=== PATIENT | female | born 1950 | race Caucasian/White ===

== ENCOUNTER 2017-10-24 12:05 | Emergency (ER) | payer OTHER ==
[2017-10-24 12:12] VITALS: RESP 18
--- NOTE | 2017-10-24 12:40 | CPEKG ---
Heart Rate: 93 RR Interval: 645 P-R Interval: 148 QRSD Interval: 80 QT Interval: 344 QTC Interval: 428 P Bradford: 60 QRS Bradford: 56 T Wave Bradford: 65 EKG Severity - NORMAL ECG - EKG Impression: SINUS RHYTHM Electronically Signed By: Glenn Jimenez 24-Oct-2017 15:07:30
--- NOTE | 2017-10-24 13:15 | EDPHY ---
H & P Time Seen by Provider: 10/24/17 13:02 HPI/ROS: Chief complaint. Chest pain HPI. 66-year-old female presents with an episode of chest discomfort that occurred this morning at about 10:00 a.m.. She had gone to work and had sudden retrosternal chest discomfort that she describes as tightness. No radiation. Her heart was pounding. Symptoms were fairly severe at the onset and then over the next hour decreased to no chest discomfort. She had no shortness of breath. She did notice besides her heart pounding that she was burping a lot and then she had abdominal discomfort and needed to have a diarrhea episode. She had a go down 2 flights of stairs at her were office to the bathroom. She had diarrhea and then felt better. She noticed slight shortness of breath coming up the stairs from the bathroom but no increase or return of her chest discomfort. Otherwise she has not had any shortness of breath. She notes she has had a poor diet the last few days. Her symptoms today were better with relaxing and deep breathing. She has had no fever cough. No unusual leg pain or swelling. No similar symptoms previously. Quite a bit of increased stress in the last several months as her 3 months ago. She feels completely back to normal currently ROS Constitutional. no fever/chills, no weakness Eyes. no problems with vision ENT. no sore throat, no nasal drainage Cardiovascular. Chest pain Respiratory. no shortness of breath, no cough Abdominal. Abdominal discomfort with diarrhea . no problems urinating MS. no calf pain/swelling, no neck/back pain, no joint pain Skin. no rash Lymph. no swollen glands Neuro. no headache, no dizziness, no difficulty walking or with speech Past Medical/Surgical History: Patient denies any significant past medical history Family history negative for early coronary artery disease. Her father did have an aneurysm. Social History: , nonsmoker, no alcohol Smoking Status: Never smoked Physical Exam: General Appearance: Alert pleasant well-developed female mild distress vital signs are stable with initial heart rate 114 Eyes: Pupils equal and round no pallor or injection. ENT, Mouth: Mucous membranes are moist. Respiratory: There are no retractions, lungs are clear to auscultation. Cardiovascular: Regular rate and rhythm. Gastrointestinal: Abdomen is soft and nontender, no masses, bowel sounds normal. Neurological: Awake and alert, sensory and motor exams grossly normal. Skin: Warm and dry, no rashes. Musculoskeletal: Neck is supple nontender. Extremities symmetrical, full range of motion. Psychiatric: Patient is oriented X 3, there is no agitation. Constitutional: Initial Vital Signs Temperature (C) 37.0 C 10/24/17 12:09 Heart Rate 114 H 10/24/17 12:09 Respiratory Rate 18 10/24/17 12:09 Blood Pressure 128/90 H 10/24/17 12:09 O2 Sat (%) 97 10/24/17 12:09 O2 Delivery Mode Room Air Allergies/Adverse Reactions: No Known Allergies Allergy (Unverified 10/24/17 12:08) Home Medications: Medication Instructions Recorded NK [No Known Home Meds] 10/24/17 Medical Decision Making - Diagnostics EKG Interpretation: EKG interpreted by me shows normal sinus rhythm with normal interval and axis. QRS is normal there is no significant ST elevation or depression. There is no arrhythmia. The rate is 93 Imaging Results: Imaging Impressions Chest X-Ray 10/24/17 13:35 Impression: Moderate elevation right hemidiaphragm, otherwise negative chest. Chest x-ray reviewed by me shows no pneumonia. Elevation right hemidiaphragm Procedures: IV normal saline, monitor ED Course/Re-evaluation: Re-evaluation 2:30 p.m.-patient is stable. She has no symptoms. Patient and I discussed imaging lab EKG results. We discussed treatment plan including criteria for return importance of follow-up and further evaluation. She expresses understanding and agreement. She thinks she likely had an anxiety episode. Differential Diagnosis: This is likely anxiety episode. I considered acute coronary syndrome, pulmonary embolus, pancreatitis, gallbladder illness - Data Points Laboratory Results: Laboratory Results 10/24/17 12:44 10/24/17 12:44 10/24/17 10/24/17 10/24/17 12:44 12:44 12:44 WBC 9.63 10^3/uL H 10^3/uL (3.80-9.50) RBC 5.36 10^6/uL H 10^6/uL (4.18-5.33) Hgb 15.9 g/dL g/dL (12.6-16.3) Hct 46.9 % % (38.0-47.0) MCV 87.5 fL fL (81.5-99.8) MCH 29.7 pg pg (27.9-34.1) MCHC 33.9 g/dL g/dL (32.4-36.7) RDW 13.0 % % (11.5-15.2) Plt Count 242 10^3/uL 10^3/uL (150-400) MPV 9.8 fL fL (8.7-11.7) Neut % (Auto) 58.4 % % (39.3-74.2) Lymph % (Auto) 30.7 % % (15.0-45.0) Story % (Auto) 7.4 % % (4.5-13.0) Eos % (Auto) 2.8 % % (0.6-7.6) Baso % (Auto) 0.4 % % (0.3-1.7) Nucleat RBC Rel Count 0.0 % % (0.0-0.2) Absolute Neuts (auto) 5.62 10^3/uL 10^3/uL (1.70-6.50) Absolute Lymphs (auto) 2.96 10^3/uL 10^3/uL (1.00-3.00) Absolute Monos (auto) 0.71 10^3/uL 10^3/uL (0.30-0.80) Absolute Eos (auto) 0.27 10^3/uL 10^3/uL (0.03-0.40) Absolute Basos (auto) 0.04 10^3/uL 10^3/uL (0.02-0.10) Absolute Nucleated RBC 0.00 10^3/uL 10^3/uL (0-0.01) Immature Gran % 0.3 % % (0.0-1.1) Immature Gran # 0.03 10^3/uL 10^3/uL (0.00-0.10) D-Dimer 0.32 ug/mLFEU ug/mLFEU (0.00-0.50) Sodium 146 mEq/L H mEq/L (135-145) Potassium 4.0 mEq/L mEq/L (3.5-5.2) Chloride 109 mEq/L mEq/L (97-110) Carbon Dioxide 23 mEq/l mEq/l (22-31) Anion Gap 14 mEq/L mEq/L (8-16) BUN 16 mg/dL mg/dL (7-23) Creatinine 0.9 mg/dL mg/dL (0.6-1.0) Estimated GFR > 60 Glucose 98 mg/dL mg/dL (70-100) Calcium 10.1 mg/dL mg/dL (8.5-10.4) Troponin I < 0.012 ng/mL ng/mL (0.000-0.034) Lipase 151 IU/L IU/L (23-300) Departure - Departure Disposition: Home, Routine, Self-Care Clinical Impression: Chest pain Qualifiers: Chest pain type: other chest pain Qualified Code(s): R07.89 - Other chest pain ; R07.8 - Other chest pain Condition: Good Instructions: Chest Pain (ED) Additional Instructions: Return for further episodes of chest discomfort or trouble breathing. Follow up with your regular physician for further evaluation. Referrals: Steph Reynolds MD [Primary Care Provider] - As per Instructions
[2017-10-24 13:39] LABS: PLATELET COUNT 242 10^3/uL (150-400)
[2017-10-24 15:16] VITALS: BP 152/91; PULSE 88; TEMP 98.4; O2SAT 94
== END 2017-10-24 15:16 | disposition home or self-care (01) ==
DX: R07.89 Other chest pain (principal)

== ENCOUNTER → 2017-11-16 | Outpatient (CLI) | payer OTHER | LOC: FIMAGING 15:39 | PROVIDERS: ATTEND Family Medicine | DX: Z12.31 Encounter for screening mammogram for malignant neoplasm of breast (principal); Z80.3 Family history of malignant neoplasm of breast ==

== ENCOUNTER → 2018-02-03 | Outpatient (CLI) | payer OTHER | LOC: FIMAGING 15:46 | PROVIDERS: ATTEND Physician Assistant | DX: M66.0 Rupture of popliteal cyst (principal) ==